=== PATIENT | male | born 1945 | race Caucasian/White ===

== ENCOUNTER 2017-02-09 11:08 | Day surgery (SDC) | payer OTHER ==
[2017-02-09 09:12] VITALS: BMI 21.7
[2017-02-09] MEDS ORDERED: IBUPROFEN 800 MG/8 ML IJ IVPB PRN (13:43)
--- NOTE | 2017-02-09 13:43 | HP ---
History & Physical Update - History History: No Change - Physical Physical: No Change - Assessment Assessment: No Change - Plan Plan: No Change
[2017-02-09] MEDS ORDERED: ACETAMINOPHEN 1000 MG/100 ML VIAL (NON FORMULARY) IVPB ONE (13:44)
[2017-02-09] MEDS ORDERED: DEXTROSE 5%-0.45% SALINE 1,000 ML IV SCH (13:45)
[2017-02-09] MEDS ORDERED: CEFTRIAXONE 100 ML IVPB STA (13:53)
[2017-02-09] MEDS ORDERED: PROPOFOL 20 ML ONE ×3 (14:02→14:16)
[2017-02-09] MEDS ORDERED: cefTRIAXone 2 GM/100 ML BAG (PRE-DOCKED) IVPB ONE (14:13)
[2017-02-09] MEDS ORDERED: oxyCODONE HCL 5 MG TABLET PO PRN (15:17)
[2017-02-09] MEDS ORDERED: ONDANSETRON 4 MG/2 ML VIAL IVPUSH PRN (15:17)
[2017-02-09] MEDS ORDERED: LACTATED RINGERS SOLUTION 1,000 ML IV SCH (15:30)
[2017-02-09] MEDS ORDERED: IBUPROFEN 800 MG/8 ML IJ IVPB ONE (16:11)
[2017-02-09 17:00] VITALS: TEMP 98
[2017-02-09 19:16] VITALS: BP 131/72; PULSE 57
--- NOTE | 2017-03-17 11:01 | OP ---
DATE OF OPERATION: 02/09/2017 PREOPERATIVE DIAGNOSIS: Urinary retention with benign prostatic hypertrophy. POSTOPERATIVE DIAGNOSIS: Urinary retention with benign prostatic hypertrophy. PROCEDURE: Cystoscopy, GreenLight laser prostatectomy. ANESTHESIA: General. SURGEON: Wellington Rm MD PREOPERATIVE INDICATIONS: The patient is a 71-year-old male with BPH and urinary retention. He comes to the operating room for laser ablation of the prostate. OPERATION: The patient was brought to the OR, placed on the table in the supine position, given general anesthesia, and placed in the modified lithotomy position. The groin was prepped and draped sterilely. Cystoscopy was performed. Urethra appeared to be unremarkable. The sphincter was intact. The prostate was enlarged and obstructive. The bladder itself had trabeculations throughout and some areas of erythema consistent with having a Scott catheter for several weeks. No tumors were seen. Using the GreenLight laser, the obstructive tissue of the prostate from the bladder neck to the area just proximal to the verumontanum was ablated. A good open prostate fossa was noted at the end of the case. The UOs and the urethral sphincter were seen and noted to be not injured during the case. The Scott catheter was replaced. Patient was woken up. WELLINGTON RM M.D. [id number]
== END 2017-02-09 18:00 | disposition home or self-care (01) ==
LOC: JASU-SURG 11:08
PROVIDERS: ATTEND Urology
PROC: 0VT08ZZ Resection of Prostate, Via Natural or Artificial Opening Endoscopic (ICD-10-PCS; principal; 2017-02-09 12:30)
DX: N40.1 Benign prostatic hyperplasia with lower urinary tract symptoms (principal); R33.9 Retention of urine, unspecified
CPT/HCPCS: 94760